=== PATIENT | male | born 1965 | race African-American/Black ===

== ENCOUNTER 2020-12-21 18:56 | Emergency (ER) | payer SELFPAY ==
[~2020-12-21] VITALS: Ht 185.4 cm; Wt 98.0 kg
[2020-12-21 19:06] VITALS: BP 153/80
== END 2020-12-21 21:35 | disposition left against medical advice (07) ==
LOC: ER 20:17
DX: Z53.21 Procedure and treatment not carried out due to patient leaving prior to being seen by health care provider (principal); R11.2 Nausea with vomiting, unspecified

== ENCOUNTER 2025-02-23 19:12 | Emergency (ER) | payer MEDICAID ==
[~2025-02-23] VITALS: Ht 203.2 cm; Wt 100.0 kg
[2025-02-23 19:13] VITALS: BP 138/74; PULSE 98; RESP 18; TEMP 36.9; O2SAT 99
[2025-02-23] MEDS ORDERED: ACETAMINOPHEN 500MG TABLET PO ONE (20:45)
[2025-02-23] MEDS ORDERED: CHLORHEXIDINE GLUCONATE 0.12% MOUTHWASH UDC SSP SCH (20:45)
== END 2025-02-23 22:58 | disposition left against medical advice (07) ==
LOC: ER 19:12
DX: S00.83XA Contusion of other part of head, initial encounter (principal); S09.90XA Unspecified injury of head, initial encounter; Z87.820 Personal history of traumatic brain injury; Y09 Assault by unspecified means; Y93.89 Activity, other specified; Y92.89 Other specified places as the place of occurrence of the external cause; Y99.8 Other external cause status
CPT/HCPCS: 99283